=== PATIENT | male | born 1990 | race African-American/Black ===

== ENCOUNTER 2017-03-09 21:50 | Emergency (ER) | payer SELFPAY ==
[~2017-03-09] VITALS: Ht 167.6 cm; Wt 65.8 kg
[2017-03-09 22:12] VITALS: BP 131/71
[2017-03-09] MEDS ORDERED: Ketorolac 30mg Inj IV ONE (22:30)
--- NOTE | 2017-03-09 22:59 | Emergency Room Report ---
History of Present Illness General Chief Complaint: Headache Source: Patient Present Illness HPI Is a 27-year-old male with no past medical history. He presents with headache and pain to that his ears. Onset for last couple days. Denies any fever or chills. Denies any nausea vomiting. Nothing made it better. Palpation made it worse. Pain is 8/10. No other complaint. No weight loss. Allergies: Coded Allergies: No Known Allergies (Unverified , 03/09/17) Patient History Past Medical History: see triage record, old chart reviewed Past Surgical History: other Pertinent Family History: none Social History: Denies: drug use Immunizations: other Reviewed Nursing Documentation: PMH: Agreed, PSxH: Agreed Nursing Documentation-PMH Past Medical History: No History, Except For Review of Systems Eye: Denies: blurred vision, eye pain ENT: Denies: ear pain, nose congestion, throat swelling Respiratory: Denies: cough, shortness of breath Cardiovascular: Denies: chest pain, palpitations Gastrointestinal: Denies: abdominal pain, diarrhea, nausea, vomiting Musculoskeletal: Denies: back pain, joint pain Skin: Denies: rash Neurological: Reports: headache, Denies: numbness Endocrine: Denies: increased thirst, increased urine Hematologic/Lymphatic: Denies: easy bruising All Other Systems: negative except mentioned in HPI Physical Exam Vital Signs Date Time Temp Pulse Resp B/P Pulse Ox O2 Delivery O2 Flow Rate FiO2 03/09/17 22:04 98.1 80 16 131/71 98 Room Air vitals normal Sp02 EP Interpretation: reviewed, normal General Appearance: well appearing, no apparent distress, alert Head: normocephalic, atraumatic Eyes: bilateral eye EOMI, bilateral eye PERRL ENT: hearing grossly normal, normal pharynx Neck: full range of motion, supple, no meningismus, tender - Very large left occipital and postauricular lymph node. Largest one measures 2.5 cm. He also has right postauricular lymph node enlargement. Not as bad as the left. Respiratory: chest non-tender, lungs clear, normal breath sounds Cardiovascular #1: regular rate, rhythm, no murmur Gastrointestinal: normal bowel sounds, non tender, no mass, no organomegaly, no bruit, non-distended Musculoskeletal: back normal, gait/station normal, normal range of motion Neurologic: alert, oriented x3 Psychiatric: mood/affect normal Skin: warm/dry Lymphatic: adenopathy - Other than occipital and postauricular adenopathy, no other adenopathy. Medical Decision Making Diagnostic Impression: Primary Impression: Lymphadenitis Additional Impression: Headache Qualified Codes: R51 - Headache ER Course He presents with a large lymph node of the postauricular and occipital. No evidence of leukemia lymphoma. No evidence of HIV. He felt better now. We'll put on antibiotics. I see no obvious scalp infection. No evidence of intracranial bleed or meningitis. Last Vital Signs Date Time Temp Pulse Resp B/P Pulse Ox O2 Delivery O2 Flow Rate FiO2 03/09/17 22:12 98.1 84 16 131/71 98 Room Air Status: improved Disposition: HOME, SELF-CARE Condition: Stable Scripts Ibuprofen* (MOTRIN*) 600 Mg Tablet 600 MG ORAL Q8H Y for For Pain, #30 TAB 0 Refills Prov: WENDY HODGE M.D. 03/10/17 Amoxicillin/Potassium Clav 875-125* (AUGMENTIN 875-125 TABLET*) 1 Each Tablet 1 TAB ORAL TWICE A DAY, #14 TAB Prov: WENDY HODGE M.D. 03/10/17 Referrals: NOT CHOSEN [facility]/,REFERRING (PCP) Additional Instructions: Follow up with your doctor in 7 days. Return if worse. WENDY HODGE M.D. Mar 09, 2017 22:59
[2017-03-09 23:01] LABS: BASOPHILS % (AUTO) 1.9 % (0.0-2.0); EOSINOPHILS % (AUTO) 5.3 % (0.0-3.0); LYMPHOCYTES % (AUTO) 32.8 % (20.0-45.0); MEAN CORPUSCULAR HEMOGLOBIN 30.1 PG (27.0-31.0); MEAN CORPUSCULAR HGB CONC 33.6 G/DL (32.0-36.0); MEAN CORPUSCULAR VOLUME 90 FL (80-99); MEAN PLATELET VOLUME 6.2 FL (6.5-10.1); MONOCYTES % (AUTO) 7.9 % (1.0-10.0); NEUTROPHILS % (AUTO) 52.2 % (45.0-75.0); PLATELET COUNT 235 K/UL (150-450); RED BLOOD COUNT 4.35 M/UL (4.70-6.10); RED CELL DISTRIBUTION WIDTH 12.4 % (11.6-14.8); WHITE BLOOD COUNT 4.7 K/UL (4.8-10.8)
[2017-03-09 23:17] LABS: ANION GAP 13 (5-15); CALCIUM 9.4 mg/dL (8.6-10.2); CARBON DIOXIDE 30 mEQ/L (20-30); CHLORIDE 96 mEQ/L (98-107); GLOMERULAR FILTRATION RATE > 60 mL/min (>60); HEMOLYSIS 32; POTASSIUM 3.3 mEQ/L (3.4-4.9); SODIUM 139 mEQ/L (135-145)
[2017-03-10] MEDS ORDERED: AUGMENTIN 875-1 EAC1 ORAL (00:15)
[2017-03-10] MEDS ORDERED: IBUPROFEN600 MG ORAL (00:15)
[2017-03-10 00:25] VITALS: BP 129/73
[2017-03-10 00:26] VITALS: BP 129/73
== END 2017-03-10 00:26 | disposition home or self-care (01) ==
LOC: EMR 22:45
DX: I88.9 Nonspecific lymphadenitis, unspecified (principal); R51 Headache
CPT/HCPCS: 36415; 80048; 85025; 86703; 96374; 99284; J1885

== ENCOUNTER 2018-07-22 15:20 | Emergency (ER) | payer BC ==
[~2018-07-22] VITALS: Ht 167.6 cm; Wt 65.8 kg
[~2018-07-22 15:20] MED LIST: AUGMENTIN 875-1 EAC1 ORAL; IBUPROFEN600 MG ORAL
[2018-07-22 15:36] VITALS: BP 137/90
[2018-07-22] MEDS ORDERED: Methocarbamol 750mg tab ORAL ONE (16:00)
[2018-07-22] MEDS ORDERED: LIDODERM700 M1 TOPIC (16:25)
[2018-07-22] MEDS ORDERED: IBUPROFEN600 MG ORAL (16:25)
[2018-07-22] MEDS ORDERED: ROBAXIN-750750 MG PO (16:25)
[2018-07-22 16:29] VITALS: BP 137/90
--- NOTE | 2018-07-22 16:54 | Emergency Room Report ---
History of Present Illness General Chief Complaint: Back Pain-No Injury Source: Patient Present Illness HPI 28-year-old male presents ED for evaluation of back pain. Started one week ago. Denies any recent injury or fall. States pain is sharp, localized lower back, nonradiating. 8 out of 10. Denies bowel or bladder incontinence. Denies any leg weakness. Denies any fevers or chills. Denies flank pain. No other aggravating relieving factors. Denies any other associated symptoms Allergies: Coded Allergies: No Known Allergies (Unverified , 03/09/17) Patient History Past Medical History: none Past Surgical History: none Pertinent Family History: none Social History: Denies: smoking, alcohol use, drug use Immunizations: UTD Reviewed Nursing Documentation: PMH: Agreed; PSxH: Agreed Nursing Documentation-PMH Past Medical History: No Stated History Review of Systems All Other Systems: negative except mentioned in HPI Physical Exam Vital Signs Date Time Temp Pulse Resp B/P (MAP) Pulse Ox O2 Delivery O2 Flow Rate FiO2 07/22/18 15:31 98.9 89 18 137/90 98 Room Air 99.0 Sp02 EP Interpretation: reviewed, normal General Appearance: no apparent distress, alert, GCS 15, non-toxic Head: normocephalic, atraumatic Eyes: bilateral eye normal inspection, bilateral eye PERRL ENT: hearing grossly normal, normal pharynx, no angioedema, normal voice Neck: full range of motion, supple/symm/no masses Respiratory: chest non-tender, lungs clear, normal breath sounds, speaking full sentences Cardiovascular #1: regular rate, rhythm, no edema Cardiovascular #2: 2+ carotid (R), 2+ carotid (L), 2+ radial (R), 2+ radial (L) , 2+ dorsalis pedis (R), 2+ dorsalis pedis (L) Gastrointestinal: normal bowel sounds, non tender, soft, non-distended, no guarding, no rebound Rectal: deferred Genitourinary: normal inspection, no CVA tenderness Musculoskeletal: gait/station normal, normal range of motion, non-tender, tender - paraspinal lumbar tenderness Neurologic: alert, oriented x3, responsive, motor strength/tone normal, sensory intact, speech normal Psychiatric: judgement/insight normal, memory normal, mood/affect normal, no suicidal/homicidal ideation Reflexes: 3+ bicep (R), 3+ bicep (L), 3+ tricep (R), 3+ tricep (L), 3+ knee (R) , 3+ knee (L) Skin: normal color, no rash, warm/dry, well hydrated Lymphatic: no adenopathy Medical Decision Making Diagnostic Impression: Primary Impression: Back pain Qualified Codes: M54.5 - Low back pain ER Course Hospital Course 28-year-old male presents ED complaining of lower back pain. No evidence of trauma Differential diagnoses include: pyelonephritis, kidney stone, muscle strain, Lspine fracture Clinical course Patient placed on stretcher. After initial history, physical exam reveals male in no acute distress. There is no vertebral body tenderness. There is some paraspinal lumbar tenderness bilaterally. Negative straight leg raise. 5 out of 5 motor in both legs. No sensory deficit. No evidence of sciatica. Pain is likely muscular. 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 Patient given ibuprofen, Lidoderm patch and Robaxin here. Patient is safe for discharge. Discussed findings with patient. I will provide PMD referrals. Diagnosis - back pain Stable and discharged to home with prescription for motrin, robaxin, lidoderm patch. Followup with PMD. Return to ED if symptoms recur or worsen Last Vital Signs Date Time Temp Pulse Resp B/P (MAP) Pulse Ox O2 Delivery O2 Flow Rate FiO2 07/22/18 16:29 99.0 89 18 137/90 98 Room Air 210.2 Status: improved Disposition: HOME, SELF-CARE Condition: Stable Scripts Methocarbamol* (ROBAXIN-750*) 750 Mg Tablet 750 MG PO TID, #21 TAB 0 Refills Prov: Donovan Evans MD 07/22/18 Lidocaine (Lidoderm) 1 Each Adh..patch 1 PATCH TOPIC DAILY, #7 PATCH 0 Refills Patch(es) may remain in place for up to 12 hours in any 24-hour period. Prov: Donovan Evans MD 07/22/18 Ibuprofen* (MOTRIN*) 600 Mg Tablet 600 MG ORAL Q8H PRN for For Pain, #30 TAB 0 Refills Prov: Donovan Evans MD 07/22/18 Referrals: NOT CHOSEN [facility]/,REFERRING (PCP) Patient Instructions: Back Pain, Adult Donovan Evans MD Jul 22, 2018 16:54
== END 2018-07-22 16:29 | disposition home or self-care (01) ==
LOC: EMR 15:52
DX: M54.5 Low back pain (principal)
CPT/HCPCS: 99283

== ENCOUNTER 2018-11-29 15:32 | Emergency (ER) | payer BC ==
[~2018-11-29] VITALS: Ht 167.6 cm; Wt 65.8 kg
[~2018-11-29 15:32] MED LIST changes: +LIDODERM700 M1 TOPIC; +ROBAXIN-750750 MG PO
--- NOTE | 2018-11-29 15:55 | NUR ---
ED Nurse Note: Pt came in from home due to chest pain on sternal area and SOB since yesterday. Pain 6/10, get worse with movement. AOx4, VSS chidi. Will cont to monitor.
--- NOTE | 2018-11-29 16:02 | Emergency Room Report ---
History of Present Illness General Chief Complaint: Chest Pain Source: Patient Present Illness HPI 28-year-old male patient presents the ER complaining of chest pain for the past day. Reports pain with deep inspiration. Hurts pain is reproducible. Reports pain with palpation of chest. Denies history of cough. Denies history of fever. Denies history of heart attack or stroke. Denies history of asthma or pneumonia. Denies shortness of breath. Denies calf pain. Denies recent travel. denies aggravating or relieving factors. Denies getting flu vaccine this year. Denies vomiting or diarrhea. Reports able to tolerate p.o. fluids. Reports history of migraine. Reports headache all over, mostly on left side. Denies vomiting or vision changes. denies worst ECHOLS of life. denies taking medication for relief of symptoms. Allergies: Coded Allergies: No Known Allergies (Unverified , 03/09/17) Patient History Past Medical History: see triage record Reviewed Nursing Documentation: PMH: Agreed; PSxH: Agreed Nursing Documentation-PMH Past Medical History: No Stated History Review of Systems All Other Systems: negative except mentioned in HPI Physical Exam Vital Signs Date Time Temp Pulse Resp B/P (MAP) Pulse Ox O2 Delivery O2 Flow Rate FiO2 11/29/18 15:39 99.0 92 16 129/84 97 Room Air Sp02 EP Interpretation: reviewed, normal General Appearance: well appearing, no apparent distress, alert, GCS 15, non- toxic Head: normocephalic, atraumatic Eyes: bilateral eye normal inspection, bilateral eye PERRL ENT: hearing grossly normal, normal pharynx, no angioedema, normal voice, uvula midline, moist mucus membranes Neck: full range of motion, no meningismus, no bony tend Respiratory: lungs clear, normal breath sounds, no rhonchi, no respiratory distress, no accessory muscle use, no wheezing, speaking full sentences, other - Chest tender to palpation, chest symmetrical Cardiovascular #1: regular rate, rhythm, no edema Cardiovascular #2: 2+ radial (R), 2+ radial (L) Musculoskeletal: back normal, digits/nails normal, gait/station normal, normal range of motion, non-tender, no calf tenderness, Johana's Sign negative Neurologic: alert, oriented x3, responsive, barn manager III-XII nml as tested, motor strength/tone normal, SLR negative, sensory intact, cerebellar normal, normal gait, speech normal Psychiatric: mood/affect normal Skin: no rash Medical Decision Making PA Attestation Dr. Lee is my supervising Physician whom patient management has been discussed with. Diagnostic Impression: Primary Impression: Nonspecific chest pain Additional Impression: Flu-like symptoms ER Course Pt presents to ED c/o chest pain times 1 day. DDX considered but are not limited to influenza, viral URI, pneumonia, costochondritis, pericarditis, [place], CHF, pneumothorax. On PE, chest is TTP; chest pain likely musculoskeletal in nature, does not require cardiac workup at this time. Patient instructed to take NSAIDs as needed for pain symptoms. VITAL SIGNS are WNL, patient is afebrile. ER COURSE: Provided with pain medication. Lungs clear to auscultation, no wheezes, rhonci or rales. patient afebrile. CXR negative for acute disease. EKG shows no ST elevation or afib. Pain reproducible, chest TTP, CXR and EKG negative, low suspicion for cardiac etiology of symptoms, likely MSK in nature. Advised patient to followup with PCP and discuss referral to cardiology for stress testing and further evaluation. Symptomatic treatment. Will cover for flu like symptoms with Tamiflu. drink plenty of fluids. Followup with PCP for further treatment and/or referral as needed. ER precautions given. DISCHARGE: At this time pt is stable for d/c to home. Patient is resting comfortably, in no acute distress, nontoxic appearing. Patient to take medications as instructed Will provide with patient care instructions and any necessary prescriptions. Care plan and follow-up instructions provided. Patient instructed to follow-up with primary care provider in 3 - 5 days. Patient questions asked and answered. Patient reports understanding and agreement to treatment plan. ER precautions given. Patient instructed to return to ER immediately for any new or worsening of symptoms including but not limited to increasing SOB, persistent fever, intractable vomiting. - Please note that this Emergency Department Report was dictated using [employer] checker technology software, occasionally this can lead to erroneous entry secondary to interpretation by the dictation equipment. EKG Diagnostic Results Rate: normal Rhythm: NSR ST Segments: no acute changes ASA given to the pt in ED: Yes CHELLY Collado PA-C Rhythm Strip Diag. Results EP Interpretation: yes Rate: 77 Rhythm: NSR, no PVC's, no ectopy CHELLY Sanchezye PA-C Chest X-Ray Diagnostic Results Chest X-Ray Diagnostic Results : Chest X-Ray Ordered: Yes Indication: Chest Pain EP Interpretation: Yes PA Xray: Interpretation reviewed, by supervising MD, and agrees with findings. Interpretation: no consolidation, no effusion, no pneumothorax, no acute cardiopulmonary disease Impression: No acute disease CHELLY Scribe Text Bryan Collado PA-C Last Vital Signs Date Time Temp Pulse Resp B/P (MAP) Pulse Ox O2 Delivery O2 Flow Rate FiO2 11/29/18 15:39 99.0 92 16 129/84 97 Room Air Disposition: HOME, SELF-CARE Condition: Stable Scripts Oseltamivir Phosphate (Tamiflu) 75 Mg Capsule 75 MG ORAL TWICE A DAY for 5 Days, #10 CAP Prov: Sohail Collado 11/29/18 Methocarbamol* (ROBAXIN*) 500 Mg Tablet 500 MG PO TID, #21 TAB 0 Refills Prov: Sohail Collado 11/29/18 Acetaminophen* (TYLENOL EXTRA STRENGTH*) 500 Mg Tablet 500 MG ORAL Q8H PRN for Prn Headache/Temp > 101, #30 TAB 0 Refills Prov: Sohail Collado 11/29/18 Patient Instructions: Nonspecific Chest Pain Additional Instructions: Followup with primary care provider in 2-3 days. Take medications as directed. SE drowsiness, do not take prior to drinking, driving, operating heavy machinery. Patient questions asked and answered. ER precautions given, patient instructed to return to ER immediately for any new or worsening of symptoms. Sohail Collado Nov 29, 2018 16:02
--- NOTE | 2018-11-29 16:10 | NUR ---
ED Nurse Note: Xray at the bedside.
[2018-11-29 16:40] VITALS: BP 127/83
[2018-11-29] MEDS ORDERED: TYLENOL EXTRA500 MG ORAL (16:45)
[2018-11-29] MEDS ORDERED: TAMIFLU75 MG ORAL (16:45)
[2018-11-29] MEDS ORDERED: ROBAXIN500 MG PO (16:45)
[2018-11-29 16:51] VITALS: BP_SYST 75
--- NOTE | 2018-11-29 16:52 | NUR ---
ED Nurse Note: Discharge instructions given to pt. Answered all questions. Verbalized understanding. No acute distres noted. A+ O x4. Ambulatory. Left ER w/ steady gait. Left w/ all belongings. ID band removed.
--- NOTE | 2018-11-29 16:53 | Diagnostic Imaging Report ---
Indication: Chest pain Technique: One view of the chest Comparison: none Findings: Lungs and pleural spaces are clear. Heart size is normal Impression: No acute process
== END 2018-11-29 16:55 | disposition home or self-care (01) ==
LOC: EMR 16:51
DX: R07.9 Chest pain, unspecified (principal); J11.1 Influenza due to unidentified influenza virus with other respiratory manifestations
CPT/HCPCS: 71045; 93005; 99283

== ENCOUNTER 2019-04-18 17:21 | Emergency (ER) | payer BC ==
[~2019-04-18] VITALS: Ht 167.6 cm; Wt 65.8 kg
[~2019-04-18 17:21] MED LIST changes: +ROBAXIN500 MG PO; +TAMIFLU75 MG ORAL; +TYLENOL EXTRA500 MG ORAL
[2019-04-18 18:08] VITALS: BP 136/93
--- NOTE | 2019-04-18 18:34 | Emergency Room Report ---
History of Present Illness General Chief Complaint: Pain Source: Patient Present Illness HPI 29-year-old male presents to the emergency department complaining of 7 out of 10 in severity burning pain in the rectum times almost one week. Patient states that his symptoms have been for the most part consistent he does note that 4 days ago he did notice some very scant blood on the chart paper when he wiped he says he has not had any since. Patient reports having a history of a hemorrhoid in the past he states that currently he is on the constipated side and hasn't had a bowel movement since . He denies abdominal pain or tenderness, fevers, chills. No aggravating or relieving factors otherwise Allergies: Coded Allergies: No Known Allergies (Unverified , 03/09/17) Patient History Past Medical History: see triage record Past Surgical History: none Pertinent Family History: none Immunizations: UTD Reviewed Nursing Documentation: PMH: Agreed; PSxH: Agreed Nursing Documentation-PMH Past Medical History: No History, Except For Review of Systems All Other Systems: negative except mentioned in HPI Physical Exam Vital Signs Date Time Temp Pulse Resp B/P (MAP) Pulse Ox O2 Delivery O2 Flow Rate FiO2 04/18/19 17:33 99.3 89 18 136/93 (107) 97 Room Air Sp02 EP Interpretation: reviewed, normal General Appearance: no apparent distress, alert, GCS 15, non-toxic Head: normocephalic, atraumatic Eyes: bilateral eye normal inspection, bilateral eye PERRL ENT: hearing grossly normal, normal voice Neck: full range of motion Respiratory: lungs clear, normal breath sounds, speaking full sentences Cardiovascular #1: regular rate, rhythm Gastrointestinal: non tender, soft Rectal: other - vessicular grouped rash on the left inner buttock not associated with the rectum, there are no visible hemorrhoids and tenderness is located where the rash is. No blisters or crusting. Genitourinary: normal inspection Musculoskeletal: gait/station normal, normal range of motion, non-tender Neurologic: alert, oriented x3, responsive, motor strength/tone normal, sensory intact, speech normal, grossly normal Psychiatric: judgement/insight normal Skin: normal color, no rash, warm/dry, well hydrated Lymphatic: no adenopathy Medical Decision Making PA Attestation Dr. uribe is my supervising Physician whom patient management has been discussed with. Diagnostic Impression: Primary Impression: Herpes zoster Qualified Codes: B02.9 - Zoster without complications ER Course 29-year-old male presents to the emergency department complaining of 7 out of 10 in severity burning pain in the rectum times almost one week. Patient states that his symptoms have been for the most part consistent he does note that 4 days ago he did notice some very scant blood on the chart paper when he wiped he says he has not had any since. Patient reports having a history of a hemorrhoid in the past he states that currently he is on the constipated side and hasn't had a bowel movement since . He denies abdominal pain or tenderness, fevers, chills. No aggravating or relieving factors otherwise Ddx considered but are not limited to cellulitis, scabies, shingles, varicella, dermatitis, urticaria, eczema, tinea, viral exanthem, SJS Vital signs: are WNL, pt. is afebrile H&PE are most consistent with shingles rash vs herpes. regardless tx is the same ORDERS: none required at this time, the diagnosis is clinical ED INTERVENTIONS: None required at this time. DISCHARGE: At this time pt. is stable for d/c to home. Will provide printed patient care instructions, and any necessary prescriptions. Care plan and follow up instructions have been discussed with the patient prior to discharge. Last Vital Signs Date Time Temp Pulse Resp B/P (MAP) Pulse Ox O2 Delivery O2 Flow Rate FiO2 04/18/19 18:08 99.3 73 18 136/93 97 Room Air Status: improved Disposition: HOME, SELF-CARE Condition: Stable Scripts Acetaminophen With Codeine (T#3) (TYLENOL #3 TAB*) Y Tab 1 TAB ORAL Q6H PRN for For Pain, #9 TAB Prov: Moon Pablo 04/18/19 Lidocaine HCL 2% Jelly* (Lidocaine Jelly 2%*) 5 Ml Jel.pf.jasper 1 APPLIC TOPIC DAILY for pain, #5 ML Prov: Moon Pablo 04/18/19 Valacyclovir Hcl* (VALTREX*) 500 Mg Tablet 1000 MG ORAL TID for 7 Days, #42 TAB Prov: Moon Pablo 04/18/19 Referrals: NOT CHOSEN [facility]/MD,REFERRING (PCP) Patient Instructions: Shingles, [id number] Additional Instructions: Take medications as directed. Follow up with a Primary Care Provider in 3-5 days, even if your symptoms have resolved. --Please review list of primary care clinics, if you do not already have a primary care provider Return sooner to ED if new symptoms occur, or current symptoms become worse. Do not drink alcohol, drive, or operate heavy machinery while taking Tylenol # 3 as this may cause drowsiness. - Please note that this Emergency Department Report was dictated using [employer] sharpen[employer] technology software, occasionally this can lead to erroneous entry secondary to interpretation by the dictation equipment. Moon Pablo April 18, 2019 18:34
[2019-04-18] MEDS ORDERED: LD2JL30 TOPIC (18:36)
[2019-04-18] MEDS ORDERED: ACETAMINOPHEN-1 EAC1 ORAL (18:36)
[2019-04-18] MEDS ORDERED: VALACYCLOVIR500 MG ORAL (18:36)
--- NOTE | 2019-04-18 18:50 | NUR ---
ER DISCHARGE NOTE: Patient is cleared to be discharged per ERMD, pt is aox4, on room air, with stable vital signs. pt was given dc and prescription instructions, pt was able to verbalize understanding, pt is able to ambulate with steady gait. pt took all belongings.
[2019-04-18 19:07] VITALS: BP 136/93
== END 2019-04-18 19:09 | disposition home or self-care (01) ==
LOC: EMR 18:02
DX: B02.9 Zoster without complications (principal)
CPT/HCPCS: 99282